=== PATIENT | female | born 1990 | race American Indian/Alaskan Native ===

== ENCOUNTER 2016-07-26 13:35 | Emergency (ER) | payer BC, OTHER ==
[2016-07-26] MEDS: BENADRYL IM ONE (20:42)
--- NOTE | 2016-07-26 20:52 | Emergency Department Report ---
ED General Adult HPI - General Chief complaint: Allergic Reaction Stated complaint: ALLERGIC REACTION Time Seen by Provider: 07/26/16 20:08 Source: patient Mode of arrival: Ambulatory Limitations: No Limitations - History of Present Illness Initial comments: PT states she woke up with a rash on her face and neck. PT states she itches everywhere. PT denies close contacts with rash. PT states on Sunday and Sunday, she took Tylenol # 3 for dental and back pain. PT states yesterday she took a Zyrtec for her allergies. PT states that she does not have hx of allergies but she has worked in a [employer] for 1 month. PT states she does not wear make up and she has used her soap for 1 month. pt denies any other new exposures MD Complaint: rash -: Sudden (woke up with rash ) Location: face Severity scale (0 -10): 0 Quality: other (itchy ) Consistency: constant Improves with: none Worsens with: none Associated Symptoms: rash. denies: cough, nausea/vomiting - Related Data Home Medications Medication Instructions Recorded Confirmed Last Taken No Known Home Medications [No 07/26/16 07/26/16 Unknown Reported Home Medications] Allergies Allergy/AdvReac Type Severity Reaction Status Date / Time No Known Allergies Allergy Verified 07/26/16 14:29 ED Review of Systems ROS: Stated complaint: ALLERGIC REACTION Other details as noted in HPI Comment: All other systems reviewed and negative Eyes: other (eye swelling when she woke up ) ENT: dental pain. denies: throat pain Respiratory: denies: cough, shortness of breath, SOB with exertion, SOB at rest Musculoskeletal: back pain Skin: rash ED Past Medical Hx - Past Medical History Previous Medical History?: No - Surgical History Past Surgical History?: No - Social History Smoking Status: Never Smoker Substance Use Type: None - Medications Home Medications: Home Medications Medication Instructions Recorded Confirmed Last Taken Type No Known Home Medications [No 07/26/16 07/26/16 Unknown History Reported Home Medications] ED Physical Exam - General Limitations: No Limitations General appearance: alert, in no apparent distress - Head Head exam: Present: atraumatic, normocephalic - Eye Eye exam: Present: normal appearance, PERRL. Absent: conjunctival injection Pupils: Present: normal accommodation - ENT ENT exam: Present: normal orophraynx, mucous membranes moist, normal external ear exam - Expanded ENT Exam Expanded Mouth exam: Absent: drooling, trismus Teeth exam: Present: dental caries, other (no dental abscess noted ) - Neck Neck exam: Present: full ROM. Absent: tenderness, meningismus, lymphadenopathy - Respiratory Respiratory exam: Present: normal lung sounds bilaterally. Absent: respiratory distress, wheezes - Cardiovascular Cardiovascular Exam: Present: regular rate, normal rhythm, normal heart sounds - GI/Abdominal GI/Abdominal exam: Present: soft. Absent: tenderness - Extremities Exam Extremities exam: Present: normal inspection, full ROM, normal capillary refill. Absent: tenderness - Back Exam Back exam: Present: normal inspection. Absent: tenderness, CVA tenderness (R), CVA tenderness (L) - Neurological Exam Neurological exam: Present: alert, oriented X3 - Psychiatric Psychiatric exam: Present: normal affect, normal mood - Skin Skin exam: Present: warm, dry, intact, rash, other (maculopapular rash to face and neck noted ) ED Course Vital Signs 07/26/16 14:31 Temperature 98.5 F Pulse Rate 68 Respiratory 17 Rate Blood Pressure 146/88 O2 Sat by Pulse 100 Oximetry - Reevaluation(s) Reevaluation #1: 07/26/16 21:55 PT states itching has decreased. Pt aware no driving or etoh after taking sedating medication. pt advised to avoid potential allergens and encouraged to use hypoallergenic soaps/ detergents. pt verbalizes understanding. - Pulse Oximetry Interpretation Digit-Finger Initial Pulse Oximetry Readin Actions Taken: none ED Medical Decision Making - Differential Diagnosis urticaria, contact dermatits, medication allergy Critical care attestation.: If time is entered above; I have spent that time in minutes in the direct care of this critically ill patient, excluding procedure time. ED Disposition Clinical Impression: Rash and nonspecific skin eruption Disposition: DISCHARGED TO HOME OR SELFCARE Is pt being admited?: No Does the pt Need Aspirin: No Condition: Stable Instructions: Contact Dermatitis (ED), Acute Rash (ED) Additional Instructions: Avoid potential allergens. Use Hypoallergenic soaps/ detergents No driving or ETOH After taking Vistaril Follow up with dentist for your toothache. Referrals: PRIMARY CARE, [Primary Care Provider] - 3-5 Days Forms: Work/School Release Form(ED) Time of Disposition: 21:59
[2016-07-26 22:13] VITALS: BP 134/89
== END 2016-07-26 22:12 | disposition home or self-care (01) ==
LOC: ED 13:35
DX: R21 Rash and other nonspecific skin eruption (principal)
CPT/HCPCS: 96372; 99282; J1200; J2930